=== PATIENT | female | born 1975 | race Caucasian/White ===

== ENCOUNTER 2018-03-20 20:09 | Inpatient (IN) | payer OTHER ==
[~2018-03-20] VITALS: Ht 177.8 cm; Wt 73.9 kg
[2018-03-20 20:42] VITALS: Ht 177.8 cm; Wt 73.9 kg
[2018-03-20 21:44] LABS: microscopic required? YES; urine erythrocyte 3+ (NEGATIVE)
[2018-03-20 21:51] LABS: CALCIUM 7.7 mg/dL (8.5-10.1); CARBON DIOXIDE 20.9 mmol/L (21-32); CHLORIDE SERUM 102 mmol/L (98-107); CREATININE SERUM 0.8 mg/dL (0.6-1.0); GFR1 > 60 mL/min; GLUCOSE SERUM 113 mg/dL (74-106); POTASSIUM SERUM 3.3 mmol/L (3.5-5.1); SODIUM SERUM 135 mmol/L (136-145)
[2018-03-20 21:55] LABS: ALKALINE PHOSPHATASE 57 U/L (46-116); ALT/SGPT 13 U/L (14-59); AST/SGOT 12 U/L (15-37); BILIRUBIN TOTAL 0.86 mg/dL (0.20-1.00); TOTAL PROTEIN, SERUM 6.7 g/dL (6.4-8.2)
[2018-03-20 21:56] LABS: ALBUMIN 3.2 g/dL (3.4-5.0)
[2018-03-20 21:59] LABS: BASOPHIL % 0.7 % (0-2); PLATELET COUNT 213 x10^3mcL (130-400)
[2018-03-20 22:01] LABS: RED CELL DISTRIBUTION WIDTH 16.5 % (11.5-14.5)
[2018-03-20 22:57] VITALS: BP 96/62
[2018-03-20 22:59] LABS: T3 TOTAL 0.75 ng/mL
[2018-03-20 23:09] LABS: PHOSPHOROUS 1.9 mg/dL (2.5-4.9)
[2018-03-20 23:14] LABS: CHOLESTEROL/HDL RATIO 1.8; FREE T4 0.84 ng/dL (0.76-1.46); FREE THYROXINE INDEX 1.7 ug/dL (1.4-4.5); T4(THYROXINE) 4.8 ug/dL (4.7-13.3)
[2018-03-20 23:24] LABS: AMPHETAMINE QUAL UR NONE DETECTED (NEG <=1000)
[2018-03-21 06:30] VITALS: BP 96/60
[2018-03-21 06:51] LABS: BASOPHIL % 0.4 % (0-2); PLATELET COUNT 193 x10^3mcL (130-400)
[2018-03-21 06:58] LABS: RED CELL DISTRIBUTION WIDTH 16.3 % (11.5-14.5)
[2018-03-21 07:02] LABS: rbc morphology (normal/abnorm) ABNORMAL (NORMAL)
[2018-03-21 07:19] LABS: CALCIUM 7.6 mg/dL (8.5-10.1); CARBON DIOXIDE 25.1 mmol/L (21-32); CHLORIDE SERUM 107 mmol/L (98-107); CREATININE SERUM 0.9 mg/dL (0.6-1.0); GFR1 > 60 mL/min; GLUCOSE SERUM 102 mg/dL (74-106); SODIUM SERUM 140 mmol/L (136-145)
[2018-03-21 08:00] VITALS: BP 94/53
[2018-03-21 12:27] VITALS: BP 113/72
[2018-03-21 13:08] LABS: IRON 12 ug/dL (50-170); TOTAL IRON BINDING CAPACITY 264 ug/dL (250-450)
[2018-03-21 13:14] LABS: RED BLOOD CELLS 3.81 M/mm3 (4.10-5.10)
== END 2018-03-21 16:23 | disposition left against medical advice (07) | DRG 720 ==
LOC: ED 20:09 → DU 22:20
PROVIDERS: Emergency Medicine; Student in an Organized Health Care Education/Training Program
DX: A41.9 Sepsis, unspecified organism (principal); N17.0 Acute kidney failure with tubular necrosis; N39.0 Urinary tract infection, site not specified; R31.9 Hematuria, unspecified; D64.9 Anemia, unspecified; E87.6 Hypokalemia; E44.1 Mild protein-calorie malnutrition; Z53.21 Procedure and treatment not carried out due to patient leaving prior to being seen by health care provider; N10 Acute pyelonephritis; E87.1 Hypo-osmolality and hyponatremia; E83.51 Hypocalcemia; Z53.29 Procedure and treatment not carried out because of patient's decision for other reasons; B96.20 Unspecified Escherichia coli [E. coli] as the cause of diseases classified elsewhere; E83.39 Other disorders of phosphorus metabolism; Z87.442 Personal history of urinary calculi; Z68.23 Body mass index [BMI] 23.0-23.9, adult
CPT/HCPCS: 83880; 84439; 87491; 87591; G0480; J0696; J1885; J7030; Q0092